=== PATIENT | female | born 1995 | race Hispanic/Latino ===

== ENCOUNTER 2024-04-17 16:51 | Inpatient (IN) | payer MEDICAID ==
[~2024-04-17] VITALS: Ht 160 cm; Wt 56.7 kg
[2024-04-17] MEDS ORDERED: NALoxone HCL 0.4 MG/1 ML ML IV PRN (18:00)
[2024-04-17] MEDS ORDERED: PROMETHAZINE HCL 25 MG/ML 1ML AMPULE IM PRN (18:00)
[2024-04-17] MEDS ORDERED: MEPERIDINE-PF 50 MG/ML SYG IVP PRN (18:00)
[2024-04-17] MEDS ORDERED: ePHEDrine SULFate 50 MG/ML AMPULE IVP PRN (18:00)
[2024-04-17] MEDS ORDERED: MISOPROSTOL 200 MCG TABLET ONE (18:11)
[2024-04-17] MEDS: LACTATED RINGERS 1000ML 1,000 ML IV PRN (18:14)
[2024-04-17 18:18] LABS: HEMATOCRIT 35.3 % (36-48); MEAN CORPUSCULAR HEMOGLOBIN 30.3 pg (27.0-33.0); MEAN CORPUSCULAR HGB CONC 33.4 g/dL (32.0-36.0); MEAN CORPUSCULAR VOLUME 90.7 fL (79-99); RED BLOOD CELL COUNT(AUTO) 3.89 MIL/uL (4.00-5.50); WHITE BLOOD COUNT (AUTO) 11.4 K/uL (4.8-10.8)
[2024-04-17 18:19] LABS: APPEARANCE,URINE CLEAR (CLEAR); BILIRUBIN,URINE NEGATIVE (NEGATIVE); COLOR,URINE COLORLESS (YELLOW); GLUCOSE, URINE (UA) NEGATIVE (NEGATIVE); KETONES,URINE NEGATIVE (NEGATIVE); LEUKOCYTE ESTERASE ,URINE 25 Leu/uL (NEGATIVE); NITRATE,URINE NEGATIVE (NEGATIVE); OCCULT BLOOD,URINE MODERATE (NEGATIVE); PH,URINE 6.5 (5.0-8.0); PROTEIN,URINE NEGATIVE (NEGATIVE); UROBILINOGEN,URINE 0.2 mg/dL (0.2-1.0)
[2024-04-17 18:21] LABS: ADD UA MICROSCOPIC YES
[2024-04-17 18:22] LABS: MUCUS,URINE RARE LPF (None Seen); RBC,URINE 0-1 /HPF (0-1); SQUAMOUS EPITHELIAL CELL,UR RARE /HPF (0-2)
[2024-04-18] MEDS: LACTATED RINGERS 500 ML 500 ML IV PRN (02:04)
[2024-04-18] MEDS: ibuPROFEN 600 MG TABLET PO PRN (10:25)
[2024-04-18] MEDS ORDERED: acetaMINOPHEN WITH coDEINE 1 TAB TAB PO PRN (10:30)
[2024-04-18 15:17] VITALS: BP 117/76; PULSE 76; RESP 20; TEMP 98.1
[2024-04-18] MEDS: acetaMINOPHEN 325 MG TAB PO PRN (16:10)
[2024-04-18] MEDS: WITCH HAZEL 1 PAD TP PRN (17:01)
[2024-04-18] MEDS: LANOLIN 30GM OINTMENT TP PRN (17:02)
[2024-04-18] MEDS: BENZOCAINE/LANOLIN/ALOE VERA 60 ML AEROSOL TP PRN (17:02)
[2024-04-18 19:30] VITALS: BP 101/62; PULSE 80; RESP 18; TEMP 97.9
[2024-04-18] MEDS: doCUSate SODIUM 100 MG CAP PO SCH (20:44)
[2024-04-18 23:37] VITALS: BP 118/71; PULSE 78; RESP 20; TEMP 97.6
[2024-04-19 03:37] VITALS: BP 107/64; PULSE 82; RESP 18; TEMP 97.4
[2024-04-19] MEDS ORDERED: PREN-154 PO (06:18)
[2024-04-19 06:44] LABS: HEMATOCRIT 28.8 % (36-48); MEAN CORPUSCULAR HEMOGLOBIN 30.1 pg (27.0-33.0); MEAN CORPUSCULAR HGB CONC 33.3 g/dL (32.0-36.0); MEAN CORPUSCULAR VOLUME 90.3 fL (79-99); RED BLOOD CELL COUNT(AUTO) 3.19 MIL/uL (4.00-5.50); RED CELL DISTRIBUTION WIDTH 13.1 % (11.0-15.5); WHITE BLOOD COUNT (AUTO) 20.3 K/uL (4.8-10.8)
[2024-04-19 08:00] VITALS: BP 109/71; PULSE 73; RESP 20; TEMP 97.2
== END 2024-04-19 12:10 | disposition home or self-care (01) | DRG 560 ==
LOC: EDH 16:51 → LDH 16:52 → OBSVTOIN 16:52 → LDH 17:52 → WSH 04-18 13:41
PROVIDERS: ADMIT Obstetrics & Gynecology; ATTEND Obstetrics & Gynecology
PROC: 10E0XZZ Delivery of Products of Conception, External Approach (ICD-10-PCS; principal; 2024-04-18)
PROC: 10907ZC Drainage of Amniotic Fluid, Therapeutic from Products of Conception, Via Natural or Artificial Opening (ICD-10-PCS; 2024-04-18)
PROC: 0HQ9XZZ Repair Perineum Skin, External Approach (ICD-10-PCS; 2024-04-18)
PROC: 3E0R3BZ Introduction of Anesthetic Agent into Spinal Canal, Percutaneous Approach (ICD-10-PCS; 2024-04-18)
PROC: 00HU33Z Insertion of Infusion Device into Spinal Canal, Percutaneous Approach (ICD-10-PCS; 2024-04-18)
DX: O70.0 First degree perineal laceration during delivery (principal); Z37.0 Single live birth; Z3A.40 40 weeks gestation of pregnancy
CPT/HCPCS: 36415; 81001; 85027; 86592; 86850; 86900; 86901; 87340; A4314; G0378; J2795; J7120